=== PATIENT | male | born 1975 | race African-American/Black ===

== ENCOUNTER 2020-05-03 11:17 | Outpatient (REF) | payer OTHER, SELFPAY | END 2020-05-03 11:18 | disposition home or self-care (01) | LOC: HO.LAB 11:17 | PROVIDERS: PCP Internal Medicine; Visit Provider Internal Medicine | DX: Z20.828 Contact with and (suspected) exposure to other viral communicable diseases (principal) | CPT/HCPCS: U0003 ==

== ENCOUNTER 2020-05-17 12:17 | Outpatient (REF) | payer OTHER, SELFPAY | END 2020-05-17 12:18 | disposition home or self-care (01) | LOC: HO.LAB 12:17 | PROVIDERS: Visit Provider Internal Medicine | DX: Z20.828 Contact with and (suspected) exposure to other viral communicable diseases (principal) | CPT/HCPCS: C9803; U0003 ==

== ENCOUNTER 2020-05-24 15:57 | Outpatient (REF) | payer OTHER, SELFPAY | END 2020-05-24 15:58 | disposition home or self-care (01) | LOC: HO.LAB 15:57 | PROVIDERS: PCP Internal Medicine; Visit Provider Internal Medicine | DX: Z20.828 Contact with and (suspected) exposure to other viral communicable diseases (principal) | CPT/HCPCS: C9803; U0003 ==

== ENCOUNTER 2020-10-22 08:03 | Outpatient (REF) | payer OTHER, SELFPAY ==
[2020-10-22 09:12] LABS: MANUAL DIFF FLAG NO
[2020-10-22 09:19] LABS: Basophils Percent Auto 0.7 % (0-2); Eosinophils Absolute Auto 0.2 X10*3/uL (0.0-0.4); Eosinophils Percent Auto 3.9 % (0-4); Hematocrit 44.3 % (42-52); Hemoglobin 15.3 g/dl (14.0-18.0); Imm Gran Abs Auto 0.01 X10*3/uL (0.00-0.03); Imm Gran Pct Auto 0.2 % (0.0-0.4); Lymphocytes Absolute Auto 1.5 X10*3/uL (1.2-4.9); Lymphocytes Percent Auto 25.5 % (20-40); Mean Corpuscular HGB Conc 34.5 g/dl (31.0-36.0); Mean Corpuscular Hemoglobin 31.5 pg (27.0-33.0); Mean Corpuscular Volume 91.2 fL (80-98); Mean Platelet Volume 10.4 fL (9.4-12.4); Monocytes Absolute Auto 0.7 X10*3/uL (0.1-1.2); Monocytes Percent Auto 11.6 % (2-11); Neutrophils Absolute Auto 3.5 X10*3/uL (2.0-8.3); Neutrophils Percent Auto 58.1 % (45-73); Platelet Count 164 X10*3/uL (160-400); Red Blood Count 4.86 X10*6/uL (4.60-5.80); Red Cell Distribution Width 12.2 % (11.0-16.0)
[2020-10-22 09:53] LABS: Alanine Aminotransferase 131 U/L (0-40); Albumin Level 3.8 g/dL (3.5-5.0); Alkaline Phosphatase 112 U/L (39-117); Anion Gap 12 (12-20); Aspartate Amino Transferase 103 U/L (5-37); Bilirubin Total 1.2 mg/dL (0.0-1.0); Blood Urea Nitrogen 16 mg/dL (9-16); Carbon Dioxide 29 mmol/L (22-29); Chloride 100 mmol/L (96-108); Cholesterol 167 mg/dL; Estimated Glomerular Filt Rate > 60; Glucose Random 311 mg/dL (60-115); HDL Cholesterol 46 mg/dL; LDL Cholesterol Calculated 93 mg/dl; Potassium 4.3 mmol/L (3.3-5.1); Sodium 137 mmol/L (135-145); Total Protein 7.3 g/dL (6.5-8.0); Triglycerides 142 mg/dL
[2020-10-22 10:05] LABS: Free T4 (Free Thyroxine) 1.08 ng/dL (0.71-1.85); Thyroid Stimulating Hormone 0.45 uIU/mL (0.32-4.0)
[2020-10-22 10:51] LABS: Estimated Average Glucose 209 mg/dL; Hemoglobin A1c % 8.9 %
[2020-10-22 11:11] LABS: Microalbum/Creatinine Ratio Ur 11.6 ug/mg cr
[2020-10-22 11:33] LABS: Folate 12.6 ng/mL (> or = 4.0); Vitamin B12 415 pg/mL (200-900)
== END 2020-10-22 08:04 | disposition home or self-care (01) ==
LOC: HO.LAB 08:03
PROVIDERS: PCP Internal Medicine; Visit Provider Internal Medicine
DX: I10 Essential (primary) hypertension (principal); E11.65 Type 2 diabetes mellitus with hyperglycemia; E78.00 Pure hypercholesterolemia, unspecified
CPT/HCPCS: 36415; 80053; 80061; 82043; 82607; 82746; 83036; 84439; 84443; 85025

== ENCOUNTER → 2021-09-01 14:20 | Outpatient (BNVA) | payer SELFPAY | PROVIDERS: PCP Internal Medicine; Visit Provider Physician Assistant | DX: Z02.79 Encounter for issue of other medical certificate (principal) ==

== ENCOUNTER 2021-09-06 08:32 | Outpatient (REF) | payer OTHER, SELFPAY ==
[2021-09-06 08:58] LABS: MANUAL DIFF FLAG NO
[2021-09-06 09:13] LABS: Basophils Percent Auto 0.4 % (0-2); Eosinophils Absolute Auto 0.2 X10*3/uL (0.0-0.4); Eosinophils Percent Auto 2.2 % (0-4); Hematocrit 45.5 % (42.0-52.0); Hemoglobin 15.6 g/dl (14.0-18.0); Imm Gran Abs Auto 0.02 X10*3/uL (0.00-0.03); Imm Gran Pct Auto 0.3 % (0.0-0.4); Lymphocytes Absolute Auto 1.5 X10*3/uL (1.2-4.9); Lymphocytes Percent Auto 20.9 % (20-40); Mean Corpuscular HGB Conc 34.3 g/dl (31.0-36.0); Mean Corpuscular Hemoglobin 30.5 pg (27.0-33.0); Mean Corpuscular Volume 88.9 fL (80.0-98.0); Mean Platelet Volume 9.9 fL (9.4-12.4); Monocytes Absolute Auto 0.9 X10*3/uL (0.1-1.2); Monocytes Percent Auto 11.9 % (2-11); Neutrophils Absolute Auto 4.7 x10*3/uL (2.0-8.3); Neutrophils Percent Auto 64.3 % (45-73); Platelet Count 227 X10*3/uL (160-400); Red Blood Count 5.12 X10*6/uL (4.60-5.80); Red Cell Distribution Width 11.8 % (11.0-16.0); White Blood Count 7.3 X10*3/uL (4.8-10.8)
[2021-09-06 09:30] LABS: Estimated Average Glucose 160 mg/dL; Hemoglobin A1c % 7.2 %
[2021-09-06 09:35] LABS: Alanine Aminotransferase 59 U/L (0-40); Albumin Level 4.1 g/dL (3.5-5.0); Alkaline Phosphatase 84 U/L (39-117); Anion Gap 10 (12-20); Aspartate Amino Transferase 43 U/L (5-37); Bilirubin Total 1.3 mg/dL (0.0-1.0); Blood Urea Nitrogen 11 mg/dL (9-16); Carbon Dioxide 31 mmol/L (22-29); Chloride 100 mmol/L (96-108); Cholesterol 142 mg/dL; Estimated Glomerular Filt Rate > 60; Glucose Random 208 mg/dL (60-115); HDL Cholesterol 59 mg/dL; LDL Cholesterol Calculated 72 mg/dl; Potassium 4.1 mmol/L (3.3-5.1); Sodium 137 mmol/L (135-145); Total Protein 7.5 g/dL (6.5-8.0); Triglycerides 59 mg/dL
[2021-09-06 10:00] LABS: Free T4 (Free Thyroxine) 1.16 ng/dL (0.71-1.85); Thyroid Stimulating Hormone 0.86 uIU/mL (0.32-4.0)
[2021-09-06 10:04] LABS: Vitamin B12 513 pg/mL (200-900)
[2021-09-06 10:05] LABS: Creatinine Urine 131.18 mg/dL; Microalbum/Creatinine Ratio Ur 20.5 ug/mg cr
== END 2021-09-06 08:33 | disposition home or self-care (01) ==
LOC: HO.LAB 08:32
PROVIDERS: PCP Internal Medicine; Visit Provider Internal Medicine
DX: E11.65 Type 2 diabetes mellitus with hyperglycemia (principal); E78.00 Pure hypercholesterolemia, unspecified
CPT/HCPCS: 36415; 80053; 80061; 82043; 82607; 82746; 83036; 84439; 84443; 85025

== ENCOUNTER → 2022-11-30 12:50 | Outpatient (BNVA) | payer SELFPAY | PROVIDERS: PCP Internal Medicine; Visit Provider Internal Medicine | DX: Z02.79 Encounter for issue of other medical certificate (principal) ==

== ENCOUNTER 2022-12-14 10:28 | Outpatient (REF) | payer OTHER, SELFPAY ==
[2022-12-14 10:45] LABS: MANUAL DIFF FLAG NO
[2022-12-14 11:06] LABS: Basophils Percent Auto 0.7 % (0-2); Eosinophils Absolute Auto 0.3 X10*3/uL (0.0-0.4); Eosinophils Percent Auto 5.1 % (0-4); Hematocrit 46.3 % (42.0-52.0); Hemoglobin 16.1 g/dl (14.0-18.0); Imm Gran Abs Auto 0.02 X10*3/uL (0.00-0.03); Imm Gran Pct Auto 0.3 % (0.0-0.4); Lymphocytes Absolute Auto 1.3 X10*3/uL (1.2-4.9); Lymphocytes Percent Auto 22.6 % (20-40); Mean Corpuscular HGB Conc 34.8 g/dl (31.0-36.0); Mean Corpuscular Hemoglobin 30.8 pg (27.0-33.0); Mean Corpuscular Volume 88.7 fL (80.0-98.0); Mean Platelet Volume 10.7 fL (9.4-12.4); Monocytes Absolute Auto 0.6 X10*3/uL (0.1-1.2); Monocytes Percent Auto 10.3 % (2-11); Neutrophils Absolute Auto 3.6 x10*3/uL (2.0-8.3); Platelet Count 171 X10*3/uL (160-400); Red Blood Count 5.22 X10*6/uL (4.60-5.80); Red Cell Distribution Width 12.3 % (11.0-16.0); White Blood Count 5.9 X10*3/uL (4.8-10.8)
[2022-12-14 11:28] LABS: Estimated Average Glucose 186 mg/dL; Hemoglobin A1c % 8.1 %
[2022-12-14 11:55] LABS: Alanine Aminotransferase 103 U/L (0-40); Alkaline Phosphatase 124 U/L (39-117); Anion Gap 12 (12-20); Aspartate Amino Transferase 66 U/L (5-37); Bilirubin Total 1.4 mg/dL (0.0-1.0); Blood Urea Nitrogen 12 mg/dL (9-16); Calcium 9.2 mg/dL (8.4-10.2); Carbon Dioxide 29 mmol/L (22-29); Chloride 101 mmol/L (96-108); Cholesterol 184 mg/dL; Estimated Glomerular Filt Rate > 60; Glucose Random 255 mg/dL (60-115); HDL Cholesterol 57 mg/dL; LDL Cholesterol Calculated 105 mg/dl; Potassium 4.2 mmol/L (3.3-5.1); Sodium 138 mmol/L (135-145); Total Protein 7.7 g/dL (6.5-8.0); Triglycerides 112 mg/dL
[2022-12-14 12:01] LABS: Free T4 (Free Thyroxine) 0.98 ng/dL (0.71-1.85); Thyroid Stimulating Hormone 0.43 uIU/mL (0.32-4.0)
[2022-12-14 12:02] LABS: Creatinine Urine 85.28 mg/dL; Microalbum/Creatinine Ratio Ur 26.9 ug/mg cr
[2022-12-14 12:12] LABS: Folate 11.4 ng/mL (> or = 4.0); Vitamin B12 537 pg/mL (200-900)
== END 2022-12-14 10:29 | disposition home or self-care (01) ==
LOC: HO.LAB 10:28
PROVIDERS: PCP Internal Medicine; Visit Provider Internal Medicine
DX: E11.65 Type 2 diabetes mellitus with hyperglycemia (principal); I10 Essential (primary) hypertension; E78.00 Pure hypercholesterolemia, unspecified
CPT/HCPCS: 36415; 80053; 80061; 82043; 82607; 82746; 83036; 84439; 84443; 85025

== ENCOUNTER 2023-02-07 10:06 | Outpatient (AMB) | payer OTHER, SELFPAY ==
--- NOTE | 2023-02-07 10:36 | MHC.PC.OV ---
Vital Signs 02/07/23 10:38 02/07/23 11:03 Height 5 ft 9 in Weight 239 lb BMI 35.3 BP 162/82 H 150/80 H Blood Pressure Location Lt brachial Lt brachial Position Sitting Sitting Pulse 88 Pulse Source Pulse Oximeter Pulse Oximetry (%) 98 Oxygen Delivery Method Room Air Intake Visit Reasons: PE Allergies No Known Allergies Allergy (Verified 02/07/23 10:38) Medication List - Last Reconciled 02/07/23 by Louise Hughes MD amlodipine 10 mg PO DAILY blood pressure monitor (Blood Pressure Kit) As directed blood sugar diagnostic (FreeStyle Lite Strips) As directed check the blood sugar once a day blood sugar diagnostic (FreeStyle Lite Strips) As directed check the BS QD blood-glucose meter (FreeStyle Lite Meter kit) As directed clotrimazole 1% 1 appl topical BID 4 weeks famotidine (Acid Controller) 20 mg PO DAILY flash glucose scanning reader ([employer] 14 Day [place]) As directed flash glucose sensor ([employer] 14 Day Sensor kit) As directedcheck the BS hydrochlorothiazide 12.5 mg PO DAILY lancets ([employer] Lancets) As directed check BS QD lisinopril 40 mg PO DAILY metformin 500 mg PO BID miconazole nitrate 2% (Zeasorb AF) 1 appl topical BID Tobacco use date assessed: 02/07/23 Dental Screening Dental Screen Date: 02/07/23 Did you have a dental visit in the last 12 months?: Yes Did you have a dental problem in the last 6 months where you did not have access to dental care?: No Was dental information given to patient?: Patient has dentist HPI PE HPI Details H[age][id number]-old obese male with diabetes mellitus GERD hypertension generalized anxiety disorder coming in for physical exam last seen in April 2022. Patient has been referred to Gastroenterology for colon cancer screening. Blood work was requested. Done November 2022 patient was scheduled with the senior electrical controls engineer but patient did not show. ERIK [id number] interpret occ dizzy occ nausea. states was told by work connection has iron in urine- noted rash on the R wrist - 2 weeks [facility] Medical History (Updated 02/07/23 @ 11:43 by Louise Hughes MD) Anxiety and depression COVID-19 virus infection Fatty liver GERD (gastroesophageal reflux disease) Hypertension Obesity (BMI 30-39.9) Peroneal neuropathy Type 2 diabetes mellitus with hyperglycemia Vitamin D deficiency Surgical History No pertinent past surgical history Family History (Updated 02/07/23 @ 10:39 by Deana Nevarez [facility]) Father CVD (cardiovascular disease) Pulmonary embolism Mother No problems noted. Brother No problems noted. Daughter No problems noted. Daughter ADHD Daughter No problems noted. Social History (Updated 02/07/23 @ 11:15 by Louise Hughes MD) Housing: Apartment Alcohol intake: current Alcohol intake frequency: a few times a week Alcohol type: beer Patient Tobacco Use Status: Never used Tobacco e-Cigarette/Vaping Use: Never Used Second Hand Smoke Exposure: No Current occupational status: employed Cognitive needs: No Hearing needs: No Vision needs: No Questionnaire PHQ-9 Over the last 2 weeks, how often have you been bothered by any of the following problems? 1. Little interest or pleasure in doing things: not at all 2. Feeling down, depressed, or hopeless: not at all 3. Trouble falling or staying asleep, or sleeping too much: not at all 4. Feeling tired or having little energy: not at all 5. Poor appetite or overeating: not at all 6. Feeling bad about yourself - or that you are a failure or have let yourself or your family down: not at all 7. Trouble concentrating on things, such as reading the newspaper or watching television: not at all 8. Moving or speaking so slowly that other people could have noticed. Or the opposite - being so fidgety or restless that you have been moving around a lot more than usual: not at all 9. Thoughts that you would be better off or of hurting yourself in some way: not at all Total score: 0 Depression Screening Interpretation: Negative Source: Developed by Drs. Chandrakant Mendoza, Aziza Styles, Eric Putnam and colleagues, with an educational marisel from [employer]. Thrive Questionnaire Date Thrive assessed: 02/07/23 I am a: Patient What is your living situation today?: I have a steady place to live Within the past 12 months, did the food you bought not last and you didn't have the money to get more?: Never true Within the past 12 months, did you worry whether your food would run out before you got money to buy more?: Never true Do you have trouble paying for medicines?: No Do you have trouble getting transportation to medical appointments?: No Do you have trouble paying your heating and electricity bill?: No Do you have trouble taking care of your child, family member or friend?: No Do you have trouble with day-to-day activities such as bathing, preparing meals, shopping, managing finances, etc.?: No Are you currently unemployed and looking for a job?: No Are you interested in more education?: No Currently or been in a relationship where the following occur: no concerns reported AUDIT C Alcohol Use Questionnaire (AUDIT-C) 1. How often do you have a drink containing alcohol?: 2-3 times a week 2. How many drinks containing alcohol do you have on a typical day when you are drinking?: 3 or 4 3. How often do you have six or more drinks on one occasion?: Never Total Score: 4 RANDY-7 AMB Questionnaire RANDY-7 Date RANDY - 7 assessed: 02/07/23 Feeling nervous, anxious, or on edge: 0 = Not at all Not being able to stop or control worryin = Not at all Worrying too much about different things: 0 = Not at all Trouble relaxin = Not at all Being so restless that it is hard to sit still: 0 = Not at all Becoming easily annoyed or irritable: 0 = Not at all Feeling afraid as if something awful might happen: 0 = Not at all Total RANDY-7 score (0-4 normal; 5-9 mild; 10-14 moderate; 15-21 severe): 0 Source: Developed by Drs. Chandrakant Mendoza, Aziza Styles, Eric Putnam and colleagues, with an educational marisel from [employer]. Review of Systems Const Denies poor appetite and Denies weakness Eyes Denies no additional complaints ENT Reports Normal hearing present, Denies dizziness, Denies nasal congestion, Denies tinnitus and Denies sore throat Card Denies chest pain, Denies syncope, Denies rapid heart rate and Denies dyspnea Resp Denies cough and Denies dyspnea GI Denies change in stool character, Reports constipation, Denies diarrhea, Denies nausea and Denies vomiting Denies dysuria and Denies urinary frequency Neuro Reports Normal hearing present, Denies confusion, Denies dizziness, Denies syncope and Denies weakness Psych Denies confusion Physical exam (Primary Care) Vital Signs: Last Vital Signs Pulse 88 02/07/23 10:38 BP 162/82 H 02/07/23 10:38 Pulse Ox 98 02/07/23 10:38 Oxygen Delivery Method Room Air 02/07/23 10:38 BMI result Body Mass Index 35.3 Tobacco/Smoking Status: Tobacco use Status Tobacco use date assessed 02/07/23 02/07/23 10:40 Patient Tobacco Use Status Never used Tobacco 02/07/23 10:40 Tobacco use type 07/27/21 10:39 e-Cigarette/Vaping Use Never Used 02/07/23 10:40 PHQ-9: PHQ-9 Score PHQ-9: Total score 0 02/07/23 10:44 Depression Screening Interpretation: Negative Thrive Assessment: Date of Thrive Assessment Date Thrive assessed 02/07/23 02/07/23 10:40 Currently or been in a relationship where the following occur: no concerns reported Const General: No confusion Orientation/consciousness: No confusion HENMT Head: Yes normocephalic Ears: external ears normal and TM's normal bilaterally Face and sinus: Yes normal facial exam Mouth: moist mucous membranes Throat: Yes tonsils normal Eyes Conjunctivae: conjunctivae normal Pupils: Equal, round and reactive pupils present and Pupil accommodation reflex normal Direct Ophthalmoscopy: normal light reflex Neck Neck: No lymphadenopathy Thyroid: Thyroid normal Chest Chest palpation & inspection: normal inspection of the chest Resp Effort & Inspection: normal respiratory effort and no audible wheezes Auscultation: clear to auscultation bilaterally, no crackles, no wheezes and lung sounds not diminished Cardio Rate: regular rate Rhythm: regular rhythm Peripheral pulses: radial pulses present and dorsalis pedis present GI Other: colon test reminded Palpation (GI): no masses Auscultation: normal bowel sounds and normoactive bowel sounds Rectal Exam - Male: Yes deferred Other: pedal pulses and pin prick normal Male General Exam: Yes normal external exam Skin General skin exam: no rashes or lesions noted Rashes: no rashes Neuro General: No confusion Cranial nerves: Yes Equal, round and reactive pupils present and Yes Normal hearing present Cognition (Neuro): normal cognition Gait exam (Neuro): Normal gait present Motor exam (neuro): 5/5 motor strength present throughout Deep tendon reflexes (DTR's): Right brachioradialis reflex intensity grade: 2+, Left brachioradialis reflex intensity grade: 2+, Right patellar reflex intensity grade: 2+ and Left patellar reflex intensity grade: 2+ Extrem General: No edema Assessment and Plan Assessment & Plan (1) Annual physical exam: Code(s): Z00.00 - Encounter for general adult medical examination without abnormal findings (2) Type 2 diabetes mellitus with hyperglycemia: Comment: Eye and [facility] Code(s): E11.65 - Type 2 diabetes mellitus with hyperglycemia Qualifiers: Diabetes mellitus residential insulin use: without residential use Qualified Code(s): E11.65 - Type 2 diabetes mellitus with hyperglycemia Plan: Decrease the amount of carbohydrate intake, pasta, bread, rice and potatoes are all sugar and that is aside from all the sweet stuff, remember that fruits are good but they are Sweet also. Hemoglobin A1c goal of less than 6.5 (3) GERD (gastroesophageal reflux disease): Code(s): K21.9 - Gastro-esophageal reflux disease without esophagitis Plan: Avoid the foods that causes that usually spicy foods, tomato products, juices, coffee, soda and foods that your sensitive to. After eating do not lie down, allow 3-4 hours before in lie down. And keep the head of bed above 30 degrees to avoid the acid from going up. (4) Obesity (BMI 30-39.9): Code(s): E66.9 - Obesity, unspecified Plan: Diet and exercise (5) Hypertension: Code(s): I10 - Essential (primary) hypertension Qualifiers: Hypertension type: essential hypertension Qualified Code(s): I10 - Essential (primary) hypertension Plan: Continue with blood pressure medication. Decrease salt intake and exercise patient is on amlodipine 10 mg once a day hydrochlorothiazide 12.5 mg and lisinopril 40 mg once a day (6) Hypercholesterolemia: Code(s): E78.00 - Pure hypercholesterolemia, unspecified Plan: Avoid fried foods, chicken skin, eggs, butter margarine, pastries and meat. Be it pork or beef they have a lot of cholesterol LDL goal of less than 100 and triglyceride of less than 150 (7) Generalized anxiety disorder: Code(s): F41.1 - Generalized anxiety disorder (8) Colon cancer screening: Code(s): Z12.11 - Encounter for screening for malignant neoplasm of colon (9) Hematuria: Code(s): R31.9 - Hematuria, unspecified (10) Allergic contact dermatitis: Comment: R wrist Code(s): L23.9 - Allergic contact dermatitis, unspecified cause Orders: Orders UA w Microscopic Today R31.9 - Hematuria, unspecified US renal BI Today R31.9 - Hematuria, unspecified Lipid Panel 3 Months E78.00 - Pure hypercholesterolemia, unspecified Comprehensive Met. Panel 3 Months E78.00 - Pure hypercholesterolemia, unspecified Hemoglobin A1c 3 Months E78.00 - Pure hypercholesterolemia, unspecified Referrals Podiatry Referral E11.65 - Type 2 diabetes mellitus with hyperglycemia Medications: New blood pressure monitor (Blood Pressure Kit) As directed 1 ea 0RF I10 - Essential (primary) hypertension atorvastatin 10 mg PO DAILY 30 tabs 4RF E78.00 - Pure hypercholesterolemia, unspecified triamcinolone acetonide 0.5% 1 appl topical BID 15 grams 0RF L23.9 - Allergic contact dermatitis, unspecified cause Changed From metformin 500 mg PO BID 180 tabs 2RF E11.65 - Type 2 diabetes mellitus with hyperglycemia To metformin 1,000 mg PO BID 60 tabs 3RF E11.65 - Type 2 diabetes mellitus with hyperglycemia Refilled amlodipine 10 mg PO DAILY 90 tabs 2RF I10 - Essential (primary) hypertension hydrochlorothiazide 12.5 mg PO DAILY 90 tabs 2RF E11.65 - Type 2 diabetes mellitus with hyperglycemia lisinopril 40 mg PO DAILY 90 tabs 2RF I10 - Essential (primary) hypertension Coding Level of Care Code Est Pt Prev Care 40-64y([id number]) Diagnoses Annual physical exam Z00.00 Type 2 diabetes mellitus with hyperglycemia E11.65 Diabetes mellitus intermediate manager insulin use: without residential use GERD (gastroesophageal reflux disease) K21.9 Obesity (BMI 30-39.9) E66.9 Hypertension I10 Hypertension type: essential hypertension Hypercholesterolemia E78.00 Generalized anxiety disorder F41.1 Colon cancer screening Z12.11 Hematuria R31.9 Allergic contact dermatitis L23.9
[2023-02-07 10:38] VITALS: BP 162/82; PULSE 88; O2SAT 98; BMI 35.3
[2023-02-07 11:03] VITALS: BP 150/80
== END 2023-02-07 11:57 | disposition home or self-care (01) ==
PROVIDERS: PCP Internal Medicine; Visit Provider Internal Medicine
DX: Z00.00 Encounter for general adult medical examination without abnormal findings (principal); E11.65 Type 2 diabetes mellitus with hyperglycemia; E66.9 Obesity, unspecified; Z68.35 Body mass index [BMI] 35.0-35.9, adult; K21.9 Gastro-esophageal reflux disease without esophagitis; I10 Essential (primary) hypertension; E78.00 Pure hypercholesterolemia, unspecified; F41.1 Generalized anxiety disorder; Z12.11 Encounter for screening for malignant neoplasm of colon; R31.9 Hematuria, unspecified; L23.9 Allergic contact dermatitis, unspecified cause
CPT/HCPCS: 99396

== ENCOUNTER 2023-05-10 12:31 | Outpatient (REF) | payer SELFPAY ==
[2023-05-10 13:41] LABS: Estimated Average Glucose 157 mg/dL; Hemoglobin A1c % 7.1 % (<6.0)
[2023-05-10 14:07] LABS: Alanine Aminotransferase 94 U/L (0-40); Albumin Level 4.3 g/dL (3.5-5.0); Alkaline Phosphatase 108 U/L (39-117); Anion Gap 11 (12-20); Aspartate Amino Transferase 68 U/L (5-37); Blood Urea Nitrogen 14 mg/dL (9-16); Calcium 9.4 mg/dL (8.4-10.2); Carbon Dioxide 31 mmol/L (22-29); Chloride 101 mmol/L (96-108); Cholesterol 170 mg/dL (<200); Estimated Glomerular Filt Rate > 60; Glucose Random 176 mg/dL (60-115); HDL Cholesterol 62 mg/dL (>40); LDL Cholesterol Calculated 95 mg/dL (<100); Potassium 3.6 mmol/L (3.3-5.1); Sodium 139 mmol/L (135-145); Total Protein 8.1 g/dL (6.5-8.0); Triglycerides 67 mg/dL (<150)
== END 2023-05-10 12:32 | disposition home or self-care (01) ==
LOC: HO.LAB 12:31
PROVIDERS: PCP Internal Medicine; Visit Provider Internal Medicine
DX: E78.00 Pure hypercholesterolemia, unspecified (principal); E11.65 Type 2 diabetes mellitus with hyperglycemia
CPT/HCPCS: 36415; 80053; 80061; 83036

== ENCOUNTER → 2024-09-19 12:04 | Outpatient (BNVA) | payer SELFPAY | PROVIDERS: PCP Internal Medicine; Visit Provider Physician Assistant Medical | DX: Z02.79 Encounter for issue of other medical certificate (principal) ==

== ENCOUNTER 2024-09-19 14:05 | Outpatient (AMB) | payer OTHER, SELFPAY ==
--- NOTE | 2024-09-19 14:31 | A.OFFPC_ITS ---
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 Required: No Accompanied by: Self / Same As Patient Allergies No Known Allergies Allergy (Verified 09/19/24 14:39) Tobacco use date assessed: 09/19/24 Dental Screening Dental Screen Date: 09/19/24 Did you have a dental visit in the last 12 months?: No Did you have a dental problem in the last 6 months where you did not have access to dental care?: No Was dental information given to patient?: Patient has dentist [facility] Medical History (Updated 09/19/24 @ 14:58 by Destiny Lagos PA-C) Type 2 diabetes mellitus with hemoglobin A1c goal of less than 7.0% COVID-19 virus infection Type 2 diabetes mellitus with hyperglycemia Anxiety and depression Vitamin D deficiency GERD (gastroesophageal reflux disease) Peroneal neuropathy Fatty liver Obesity (BMI 30-39.9) Hypertension Surgical History No pertinent past surgical history Family History Father CVD (cardiovascular disease) Pulmonary embolism Mother No problems noted. Brother No problems noted. Daughter No problems noted. Daughter ADHD Daughter No problems noted. Social History Housing: Apartment Alcohol intake: current Alcohol intake frequency: a few times a week Alcohol type: beer Patient Tobacco Use Status: Never used Tobacco e-Cigarette/Vaping Use: Never Used Second Hand Smoke Exposure: No service: No Current occupational status: employed Cognitive needs: No Hearing needs: No Vision needs: No Questionnaire PHQ-9 Over the last 2 weeks, how often have you been bothered by any of the following problems? 1. Little interest or pleasure in doing things: not at all 2. Feeling down, depressed, or hopeless: not at all 3. Trouble falling or staying asleep, or sleeping too much: not at all 4. Feeling tired or having little energy: not at all 5. Poor appetite or overeating: not at all 6. Feeling bad about yourself - or that you are a failure or have let yourself or your family down: not at all 7. Trouble concentrating on things, such as reading the newspaper or watching television: not at all 8. Moving or speaking so slowly that other people could have noticed. Or the opposite - being so fidgety or restless that you have been moving around a lot m ore than usual: not at all 9. Thoughts that you would be better off or of hurting yourself in some way: not at all Total score: 0 Depression Screening Interpretation: Negative Depression Screening Done: Yes 27493 - PHQ-9 Billing: Yes Source: Developed by Drs. Chandrakant Mendoza, Aziza Styles, Eric Putnam and colleagues, with an educational marisel from [employer]. Thrive Questionnaire Date Thrive assessed: 09/19/24 I am a: Patient What is your living situation today?: I have a steady place to live Within the past 12 months, did the food you bought not last and you didn't have the money to get more?: Never true Within the past 12 months, did you worry whether your food would run out before you got money to buy more?: Never true Do you have trouble paying for medicines?: No Do you have trouble getting transportation to medical appointments?: No Do you have trouble paying your heating and electricity bill?: No Do you have trouble taking care of your child, family member or friend?: No Do you have trouble with day-to-day activities such as bathing, preparing meals, shopping, managing finances, etc.?: No Are you currently unemployed and looking for a job?: No Are you interested in more education?: No Currently or been in a relationship where the following occur: No concerns repor erik THRIVE Score: 0 AUDIT C Alcohol Use Questionnaire (AUDIT-C) 1. How often do you have a drink containing alcohol?: 2-4 times a month 2. How many drinks containing alcohol do you have on a typical day when you are drinking?: 1 or 2 3. How often do you have six or more drinks on one occasion?: Never Total Score: 2 Score Reviewed/Action Taken: No RANDY-7 AMB Questionnaire RANDY-7 Date RANDY - 7 assessed: 09/19/24 Feeling nervous, anxious, or on edge: 0 = Not at all Not being able to stop or control worryin = Not at all Worrying too much about different things: 0 = Not at all Trouble relaxin = Not at all Being so restless that it is hard to sit still: 0 = Not at all Becoming easily annoyed or irritable: 0 = Not at all Feeling afraid as if something awful might happen: 0 = Not at all Total RANDY-7 score (0-4 normal; 5-9 mild; 10-14 moderate; 15-21 severe): 0 Source: Developed by Drs. Chandrakant Mendoza, Aziza Styles, Erci Putnam and colleagues, with an educational marisel from [employer]. RANDY-7 Assessment Billing RANDY-7 Assessment Tool: RANDY-7 Assessment 00469 Physical exam (Primary Care) Vital Signs: Last Vital Signs Temp 97.1 F 09/19/24 14:33 Pulse 90 09/19/24 14:33 BP 158/78 H 09/19/24 14:33 Pulse Ox 97 09/19/24 14:33 Oxygen Delivery Method Room Air 09/19/24 14:33 Care Plan Goal for BP management: <130/80 patient will be restarted on lisino pril 10 mg daily and hydrochlorothiazide 12.5 mg daily patient to monitor his blood pressure closely and return in 1 month for reassessment. BMI result Body Mass Index 33.3 BMI Assessment/Plan discussion: High BMI High, discussed plan: lifestyle, weight reduction, dietary, physical activity and alcohol moderation Tobacco/Smoking Status: Tobacco use Status Tobacco use date assessed 09/19/24 09/19/24 14:42 Patient Tobacco Use Status Never used Tobacco 09/19/24 14:33 Tobacco use type 07/27/21 10:39 e-Cigarette/Vaping Use Never Used 09/19/24 14:33 PHQ-9: PHQ-9 Score PHQ-9: Total score 0 09/19/24 15:02 Depression Screening Interpretation: Negative Thrive Assessment: Date of Thrive Assessment Date Thrive assessed 09/19/24 09/19/24 14:42 Currently or been in a relationship where the following occur: No concerns repor erik Results AMB Hemoglobin A1c AMB Hemoglobin A1c 8.1 % Last Edit by BRITNEY Dominguez on 09/19/24 14:42 Results Reviewed Results Reviewed: Laboratory Last Values Hgb A1c (Clinic) 8.1 % (4.0-6.0) H 09/19/24 14:31 Coding Level of Care Code Est Pt Level 4 (34235) Complex EM visit Add On G2211 Diagnoses Hypercholesterolemia E78.00 Tinea corporis B35.4 Type 2 diabetes mellitus with hyperglycemia, without long-term current use of insulin E11.65 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 LDL level goal less than 70. Total cholesterol go less than 200. Triglycerides level goal less than 150. HDL level greater than 40. Patient will have fasting labs ordered at this time and will have them done before his next month appoint/follow-up. Condition is chronic and stable continue to monitor (2) Tinea corporis: Code(s): B35.4 - Tinea corporis Category: Medical Plan: Patient reports intermittent flare-ups of tinea. Will represcribe antifungal topical creams. Condition is chronic and stable continue to monitor. 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 Last year around 05/21/2023 was 7.1. Patient has not been on his metformin 1000 mg b.i.d. therefore will restart at this time. Condition is chronic and stable continue to monitor. (4) Type 2 diabetes mellitus with hemoglobin A1c goal of less than 7.0%: Code(s): E11.9 - Type 2 diabetes mellitus without complications Category: Medical Plan: see above plan (5) Obesity (BMI 30-39.9): Code(s): E66.9 - Obesity, unspecified Category: Medical Plan: Patient to improve his diet and exercise regimen. Condition is chronic and stable continue to monitor. (6) Hypertension: Code(s): I10 - Essential (primary) hypertension Category: Medical Qualifiers: Hypertension type: essential hypertension Qualified Code(s): I10 - Essential (primary) hypertension Plan: Blood pressure goal less than 130/80. Patient has not been on any antihypertensives for over a year. He was on amlodipine 10 mg daily, lisinopril 40 mg daily and hydrochlorothiazide 12.5 mg daily. I was uncomfortable starting the patient on 3 different blood pressure medications that these high doses therefore will restart on lisinopril 10 mg daily and hydrochlorothiazide 12.5 mg daily had the patient monitored blood pressure and return in 1 month for reassessment. Condition is chronic and stable continue to monitor. Plan Plan Patient was informed and verbally consented to the use of an ambient scribe for clinic note documentation during this visit. 1. Type 2 Diabetes Mellitus Restart Metformin for blood glucose management, focusing on monitoring and compliance to manage untreated diabetes effectively. 2. Essential Hypertension Start Lisinopril 10 mg and Hydrochlorothiazide 12.5 mg, with planned monitoring to control blood pressure, aiming to prevent cardiovascular risks associated with untreated hypertension. 3. Hyperlipidemia Initiate treatment for lipid management to decrease cardiovascular risk, ensuring patient compliance. Discussion Notes I discussed with the patient the significance of reestablishing his medication regimen, particularly for Type 2 Diabetes Mellitus and Essential Hypertension. Emphasized the importance of adhering to prescribed medications to prevent complications and outlined the benefits and risks associated with each medication. We also deliberated on managing life stressors contributing to fluctuating blood pressure. Furthermore, laboratory studies were ordered to evaluate diabetes control, including an A1c test, and a follow-up was arranged to check on blood pressure and manage hyperlipidemia effectively. Orders: Orders Complete Blood Count Auto Diff Today Z00.00 - Encounter for general adult medical examination without abnormal findings Liver Panel Today Z00.00 - Encounter for general adult medical examination without abnormal findings Lipid Panel Today Z00.00 - Encounter for general adult medical examination without abnormal findings PSA,Total (Free>4and<10) Today Z00.00 - Encounter for general adult medical examination without abnormal findings Microalbumin, Random (w Creat) Today E11.9 - Type 2 diabetes mellitus without complications Vitamin A Today Z00.00 - Encounter for general adult medical examination without abnormal findings Zinc Today Z00.00 - Encounter for general adult medical examination without abnormal findings AMB Hemoglobin A1c Today E11.65 - Type 2 diabetes mellitus with hyperglycemia Comprehensive [place]. Panel Fast Today Z00.00 - Encounter for general adult medical examination without abnormal findings C Reactive Protein Today Z00.00 - Encounter for general adult medical examination without abnormal findings Erythrocyte Sedimentation Rate Today Z00.00 - Encounter for general adult medical examination without abnormal findings Magnesium Today Z00.00 - Encounter for general adult medical examination without abnormal findings TSH reflex Free T4 Today Z00. - Encounter for general adult medical examination without abnormal findings Vitamin D 25-OH Total Today Z00.00 - Encounter for general adult medical examination without abnormal findings Vitamin B12 and Folate Today Z00.00 - Encounter for general adult medical examination without abnormal findings Vitamin B1 Today Z.00 - Encounter for general adult medical examination without abnormal findings Testosterone, Total Today Z00. - Encounter for general adult medical examination without abnormal findings Parathyroid Hormone Intact Today Z00.00 - Encounter for general adult medical examination without abnormal findings Medications: Changed From lisinopril 40 mg PO DAILY 90 tabs 2RF I10 - Essential (primary) hypertension To lisinopril 10 mg PO DAILY 90 tabs 4RF I10 - Essential (primary) hypertension From blood-glucose meter (FreeStyle Lite Meter kit) As directed 1 ea 0RF E11.65 - Type 2 diabetes mellitus with hyperglycemia, Z12.11 - Encounter for screening for malignant neoplasm of colon To blood-glucose meter (FreeStyle Lite Meter kit) check BS QID 1 ea 1RF E11.65 - Type 2 diabetes mellitus with hyperglycemia, Z12.11 - Encounter for screening for malignant neoplasm of colon From metformin 1,000 mg PO BID 60 tabs 3RF E11.65 - Type 2 diabetes mellitus with hyperglycemia To metformin 1,000 mg PO BID 180 tabs 4RF 90 days E11.65 - Type 2 diabetes mellitus with hyperglycemia Refilled blood sugar diagnostic (FreeStyle Lite Strips) As directed check the blood sugar once a day 100 ea 4RF E11.65 - Type 2 diabetes mellitus with hyperglycemia hydrochlorothiazide 12.5 mg PO DAILY 90 tabs 4RF E11.65 - Type 2 diabetes mellitus with hyperglycemia lancets (FreeStyle Lancets) As directed check BS QD 100 ea 4RF E11.65 - Type 2 diabetes mellitus with hyperglycemia atorvastatin 10 mg PO DAILY 90 tabs 4RF E78.00 - Pure hypercholesterolemia, unspecified triamcinolone acetonide 0.5% 1 appl topical BID 15 grams 4RF L23.9 - Allergic contact dermatitis, unspecified cause Discontinued flash glucose scanning reader (FreeStyle Darell 14 Day Diana) Discontinued Reason: Doctor's Order As directed 1 ea 0RF E11.65 - Type 2 diabetes mellitus with hyperglycemia flash glucose sensor (FreeStyle Darell 14 Day Sensor kit) Discontinued Reason: Doctor's Order As directedcheck the BS 6 kits 3RF E11.65 - Type 2 diabetes mellitus with hyperglycemia famotidine (Acid Controller) Discontinued Reason: Duplicate 20 mg PO DAILY 90 tabs 2RF K21.9 - Gastro- esophageal reflux disease without esophagitis clotrimazole 1% Discontinued Reason: Duplicate 1 appl topical BID 4 weeks 45 grams 0RF B35.4 - Tinea corporis amlodipine Discontinued Reason: Doctor's Order 10 mg PO DAILY 90 tabs 2RF I10 - Essential (primary) hypertension Patient Instructions: Patient Instructions - Resume Metformin for diabetes management as prescribed. - Start Lisinopril 10 mg and Hydrochlorothiazide 12.5 mg for hypertension. - Take cholesterol-lowering medication as discussed. - Monitor blood pressure regularly and report any significant changes. - Schedule follow-up appointment in a month to evaluate medication effectiveness and reassess treatment plan. - Undergo blood work at your earliest convenience to evaluate current health status. - Manage stress through advised lifestyle adjustments to support blood pressure control. Scribe Plan - Not visible on output: History of Present Illness The patient is a 49-year-old male presenting with a need for medication management for known conditions, including Type 2 Diabetes and Essential Hypertension. His diabetes was diagnosed some time before and managed with Metformin, which he has not taken during the last year due to relocation and occupational obligations in [place]. Hypertension, previously managed with three medications, has been untreated during the same period due to loss of healthcare support and increased life stressors. His hyperlipidemia, also under prior ma nagement, requires medication reinitiation. The patient reports significant life stressors, including divorce, which may be impacting blood pressure control. 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 - Housing: Previously moved to [place] for work for a year. - Family Status: Recently . - Considerable stress is reported due to recent life changes and work responsibilities. Review of Systems - Cardiovascular: Reports past hypertension but no consistent current symptoms reported. - Endocrine: Reports history of Type 2 Diabetes Mellitus, currently untreated over the past year. - General: Weight loss reported from 239 lbs to 225 lbs over the past year. Physical Exam Appearance: Alert. Oriented X3. No acute distress. Head: Normal external exam. Normocephalic. Atraumatic. Eyes: Pupils are equal, round, and reactive to light. Extraocular movements intact. Conjunctiva and sclera normal. Eyelids normal. Throat: Pharynx normal. Uvula midline. Moist mucous membranes. Neck: Normal inspection. Neck supple. Full range of motion. Cardiovascular: Normal heart rate and rhythm. Respiratory: No respiratory distress. Painless inspiration. Back: Full range of motion noted. Skin: Skin warm and dry. Normal skin color. Normal skin turgor. No rashes/lesions/lacerations noted. Extremities: No lower extremity edema. Extremities exhibit normal range of motion. Extremities nontender. Neuro: Oriented X 3.
[2024-09-19 14:33] VITALS: BP 158/78; PULSE 90; TEMP 36.2; O2SAT 97; BMI 33.3
== END 2024-09-19 14:58 | disposition home or self-care (01) ==
LOC: HO.HMCH 14:06
PROVIDERS: PCP Internal Medicine; Visit Provider Physician Assistant Medical
DX: E78.00 Pure hypercholesterolemia, unspecified (principal); B35.4 Tinea corporis; E11.65 Type 2 diabetes mellitus with hyperglycemia; E11.9 Type 2 diabetes mellitus without complications; E66.9 Obesity, unspecified; I10 Essential (primary) hypertension

== ENCOUNTER 2024-10-24 10:12 | Outpatient (REF) | payer SELFPAY ==
[2024-10-24 10:31] LABS: MANUAL DIFF FLAG NO
--- OUTSIDE RECORDS SUMMARY | 2024-10-24 10:38 | XMS_ITS | Clinical Summary ---
[facility] Address [address] [place] [address] Care Team Providers Care Media Strategist Name Role Phone Unavailable Primary Care Provider Unavailabl e Social History Tobacco Use Types Packs/Day Years Used Date Smoking Tobacco: Never Assessed Sex and Gender Information Value Date Recorded Sex Assigned at Not on file Legal Sex Male 3:01 AM EST Gender Identity Not on file Sexual Orientation Not on file Plan of Treatment Health Maintenance Due Date Last Done Comments DTaP,Tdap,and Td Vaccines (1 - Tdap) 1993 Hepatitis B Vaccines (1 of 3 - 19+ 3-dose series) 1993 COVID-19 Vaccine ( - 2023-2 5 season) 2024 Pneumococcal Vaccine: 50+ Ye ars (1 of 1 - PCV) 2024 Zoster Vaccines (1 of 2) 2024 Influenza Vaccine (Season Ended) 2025 HIB Vaccines Aged Out No longer eligi ble based on patient's age to complete this topic HPV Vaccines Aged Out No longer eligi ble based on patient's age to complete this topic Hepatitis A Vaccines Aged Out No long er eligible based on patient's age to complete this topic IPV Vaccines Aged Out No longer eligi ble based on patient's age to complete this topic MMR Vaccines Aged Out No longer eligi ble based on patient's age to complete this topic Meningococcal ACWY Vaccine Aged Out N o longer eligible based on patient's age to complete this topic Meningococcal B Vaccine Aged Out No l onger eligible based on patient's age to complete this topic Pneumococcal Vaccine: Pediat rics (0 to 5 Years) and At-Risk Patients (6 to 64 Years) Aged Out No longer eligible b ased on patient's age to complete this topic RSV Immunization Patients Un rhiannon 20 months Aged Out No longer eligible b ased on patient's age to complete this topic Varicella Vaccines Aged Out No longer eligible based on patient's age to complete this topic
[2024-10-24 11:33] LABS: Basophils Percent Auto 0.6 % (0-2); Eosinophils Absolute Auto 0.2 X10*3/uL (0.0-0.4); Eosinophils Percent Auto 2.8 % (0-4); Hematocrit 45.6 % (42.0-52.0); Imm Gran Abs Auto 0.02 X10*3/uL (0.00-0.03); Imm Gran Pct Auto 0.3 % (0.0-0.4); Lymphocytes Absolute Auto 1.2 X10*3/uL (1.2-4.9); Mean Corpuscular HGB Conc 35.1 g/dl (31.0-36.0); Mean Corpuscular Hemoglobin 30.7 pg (27.0-33.0); Mean Corpuscular Volume 87.5 fL (80.0-98.0); Mean Platelet Volume 10.5 fL (9.4-12.4); Monocytes Absolute Auto 0.6 X10*3/uL (0.1-1.2); Monocytes Percent Auto 9.5 % (2-11); Neutrophils Absolute Auto 4.3 x10*3/uL (2.0-8.3); Neutrophils Percent Auto 67.8 % (45-73); Platelet Count 184 X10*3/uL (160-400); Red Blood Count 5.21 X10*6/uL (4.60-5.80); Red Cell Distribution Width 12.1 % (11.0-16.0); White Blood Count 6.3 X10*3/uL (4.8-10.8)
[2024-10-24 12:03] LABS: Alanine Aminotransferase 74 U/L (0-40); Alkaline Phosphatase 99 U/L (39-117); Anion Gap 9 (12-20); Aspartate Amino Transferase 65 U/L (5-37); Bilirubin Direct 0.5 mg/dL (0.0-0.5); Bilirubin Total 1.1 mg/dL (0.0-1.0); Blood Urea Nitrogen 16 mg/dL (9-16); C Reactive Protein 0.12 mg/dL (< or = 0.50); Calcium 9.3 mg/dL (8.4-10.2); Carbon Dioxide 27 mmol/L (22-29); Chloride 104 mmol/L (96-108); Cholesterol 147 mg/dL (<200); Estimated Glomerular Filt Rate > 60; Glucose Fasting 183 mg/dL (60-99); HDL Cholesterol 68 mg/dL (>40); LDL Cholesterol Calculated 67 mg/dL (<100); Magnesium 1.8 mg/dL (1.6-2.6); Potassium 3.9 mmol/L (3.3-5.1); Sodium 136 mmol/L (135-145); Total Protein 7.6 g/dL (6.5-8.0); Triglycerides 61 mg/dL (<150)
[2024-10-24 12:04] LABS: Parathyroid Hormone Intact 93.3 pg/mL (8.7-77.1)
[2024-10-24 12:06] LABS: Microalbum/Creatinine Ratio Ur 20.2 ug/mg cr (<30)
[2024-10-24 12:14] LABS: Erythrocyte Sedimentation Rate 12 MM/HR (0-15)
[2024-10-24 12:28] LABS: TSH reflex Free T4 0.32 uIU/mL (0.32-4.0); Vitamin D 25-OH Total 11.8 ng/mL (>30)
[2024-10-24 12:29] LABS: Folate 11.5 ng/mL (> or = 4.0); Vitamin B12 378 pg/mL (200-900)
[2024-10-24 12:32] LABS: PSA,Total (Free>4and<10) 0.66 ng/mL (0.00-4.00)
[2024-10-28 01:27] LABS: Vitamin A 33 mcg/dL (38-98)
[2024-10-28 20:12] LABS: Zinc 65 mcg/dL (60-130)
[2024-10-29 15:52] LABS: Testosterone, Total 1118 ng/dL (250-1100)
[2024-11-01 16:28] LABS: Vitamin B1 11 nmol/L (8-30)
== END 2024-10-24 10:13 | disposition home or self-care (01) ==
LOC: HO.LAB 10:12
PROVIDERS: PCP Internal Medicine; Visit Provider Physician Assistant Medical
DX: Z00.00 Encounter for general adult medical examination without abnormal findings (principal); E11.9 Type 2 diabetes mellitus without complications; Z12.5 Encounter for screening for malignant neoplasm of prostate
CPT/HCPCS: 36415; 80053; 80061; 80076; 82043; 82248; 82306; 82570; 82607; 82746; 83735; 83970; 84153; 84403; 84425; 84443; 84590; 84630; 85025; 85652; 86140

== ENCOUNTER 2024-10-30 15:16 | Outpatient (AMB) | payer OTHER, SELFPAY ==
--- NOTE | 2024-10-30 15:57 | MHC.PC.OV ---
Vital Signs 10/30/24 15:58 Height 5 ft 9 in Weight 218 lb BMI 32.2 BP 120/80 Blood Pressure Location Lt brachial Position Sitting Pulse 104 H Pulse Source Pulse Oximeter Temp 97.7 F Temp Source Temporal Artery Scan Pulse Oximetry (%) 97 Oxygen Delivery Method Room Air Intake Visit Reasons: annual exam Intake Note: Patient is here today for a physical. Rug Measurer Required: Yes Rug Measurer Language: Rehabilitation Medicine Physician Name: Destiny Lagos PA-C Information Interpreted: non-clinical & clinical Lining Finisher: Not Required per policy Accompanied by: Self / Same As Patient Allergies No Known Allergies Allergy (Verified 10/30/24 16:02) Medication List - Last Reconciled 10/30/24 by Destiny Lagos PA-C atorvastatin 10 mg PO DAILY blood pressure monitor (Blood Pressure Kit) As directed blood sugar diagnostic (FreeStyle Lite Strips) As directed check the BS QD blood sugar diagnostic (FreeStyle Lite Strips) As directed check the blood sugar once a day blood-glucose meter (FreeStyle Lite Meter kit) check BS QID cholecalciferol (vitamin D3) 25 mcg PO DAILY hydrochlorothiazide 12.5 mg PO DAILY lancets (FreeStyle Lancets) As directed check BS QD lisinopril 10 mg PO DAILY metformin 1,000 mg PO BID 90 days miconazole nitrate 2% (Zeasorb AF) 1 appl topical BID triamcinolone acetonide 0.5% 1 appl topical BID Tobacco use date assessed: 10/30/24 Dental Screening Dental Screen Date: 09/19/24 HPI annual exam HPI Details The patient is a 49-year-old male presenting for his annual physical exam. He would also like to discuss diabetes and his chronic medical conditions. There are ongoing challenges in maintaining ideal glucose levels, with fasting blood glucose at 125 mg/dL and postprandial levels peaking at 250 mg/dL. Recent labs indicate an elevated HbA1c of 8.1%. The patient is managing diabetes with metformin 1000 mg daily, but elevated glucose readings persist. There is also a history of hypertension being managed with lisinopril; however, inconsistent adherence due to work demands impacts blood pressure control. A prior vitamin D deficiency is being managed with vitamin D3. Reports of a fungal rash are being managed with topical cream. Social History - Employment: Works for a company requiring high availability resulting in medication adherence challenges. - Medication Adherence: Difficulty maintaining consistent medication schedule due to work constraints. - Healthcare Access: Discussed switching primary healthcare providers for convenience related to language preference and insurance compatibility. [facility] Medical History (Updated 10/30/24 @ 17:27 by Destiny Lagos PA-C) Tinea Elevated parathyroid hormone Type 2 diabetes mellitus with hemoglobin A1c goal of less than 7.0% COVID-19 virus infection Type 2 diabetes mellitus with hyperglycemia Anxiety and depression Vitamin D deficiency GERD (gastroesophageal reflux disease) Peroneal neuropathy Fatty liver Obesity (BMI 30-39.9) Hypertension Surgical History No pertinent past surgical history Family History Father CVD (cardiovascular disease) Pulmonary embolism Mother No problems noted. Brother No problems noted. Daughter No problems noted. Daughter ADHD Daughter No problems noted. Social History Housing: Apartment Alcohol intake: current Alcohol intake frequency: a few times a week Alcohol type: beer Patient Tobacco Use Status: Never used Tobacco e-Cigarette/Vaping Use: Never Used Second Hand Smoke Exposure: No service: No Current occupational status: employed Cognitive needs: No Hearing needs: No Vision needs: No Questionnaire Thrive Questionnaire Date Thrive assessed: 09/19/24 RANDY-7 AMB Questionnaire RANDY-7 Date RANDY - 7 assessed: 09/19/24 Source: Developed by Drs. Chandrakant Mendoza, Aziza Styles, Eric Putnam and colleagues, with an educational marisel from Jenn Rykert. Review of Systems Const Details: - Endocrine: Reports high blood glucose readings. - Cardiovascular: Denies fatigue, dizziness infrequently reported; blood pressure varies. - Dermatological: Reports a fungal rash. - Musculoskeletal: Denies fatigue or weakness associated with vitamin D levels. - Gastrointestinal: Denies diarrhea; occasional stomach pain reported with metformin use. Physical exam (Primary Care) Vital Signs: Last Vital Signs Temp 97.7 F 10/30/24 15:58 Pulse 104 H 10/30/24 15:58 BP 120/80 10/30/24 15:58 Pulse Ox 97 10/30/24 15:58 Oxygen Delivery Method Room Air 10/30/24 15:58 Care Plan Goal for BP management: <130/90 at Goal BMI result Body Mass Index 32.2 BMI Assessment/Plan discussion: High BMI High, discussed plan: lifestyle, weight reduction, dietary, physical activity and alcohol moderation Tobacco/Smoking Status: Tobacco use Status Tobacco use date assessed 10/30/24 10/30/24 16:02 Patient Tobacco Use Status Never used Tobacco 10/30/24 16:02 Tobacco use type 07/27/21 10:39 e-Cigarette/Vaping Use Never Used 10/30/24 16:02 Thrive Assessment: Date of Thrive Assessment Date Thrive assessed 09/19/24 10/30/24 16:02 Const Other: Appearance: Alert. Oriented X3. No acute distress. Head: Normal external exam. Normocephalic. Atraumatic. Eyes: Pupils are equal, round, and reactive to light. Extraocular movements intact. Conjunctiva and sclera normal. Eyelids normal. Ears: External auditory canal normal. Tympanic membranes normal. Throat: Pharynx normal. Uvula midline. Moist mucous membranes. Neck: Normal inspection. Neck supple. Full range of motion. No adenopathy. Thyroid Normal. No meningeal signs. No neck mass noted. Cardiovascular: Normal heart rate and rhythm. Heart sound normal. No murmurs noted. Pulses normal throughout. Blood pressure was normal today. Respiratory: No respiratory distress. Painless inspiration. Breath sounds normal. No wheezes/rales/rhonchi noted. Chest nontender. No accessory muscle usage noted or decreased air movement noted. Abdomen: Soft and nontender. Bowel sounds normal in all 4 quadrants. No distention noted. No organomegaly noted. No visible injury noted. Back: No costovertebral angle tenderness. Full range of motion noted. Skin: Skin warm and dry. Normal skin color. Normal skin turgor. No lesions/lacerations noted. Noted presence of a fungus rash to the abdominal area. Extremities: No lower extremity edema. Extremities exhibit normal range of motion. Extremities nontender. Presence of varicose veins noted. Neuro: Oriented X 3. No motor deficit. No sensory deficit. Reflexes normal. Results Reviewed Results Reviewed: - Labs: Hemoglobin A1c 8.1%; fasting blood glucose reported at 125 mg/dL. - Labs: Vitamin D previously identified as low, current supplementation with D3. Coding Level of Care Code Tele New Pt Level 4 (27734) Est Pt Prev Care 40-64y(93401) Diagnoses Annual physical exam Z00.00 Type 2 diabetes mellitus with hemoglobin A1c goal of less than 7.0% E11.9 Essential hypertension I10 Hypertension type: essential hypertension Obesity (BMI 30-39.9) E66.9 Vitamin D deficiency E55.9 Tinea B35.9 Elevated parathyroid hormone R79.89 Colon cancer screening Z12.11 Time Spent (min) 50 Assessment & Plan Assessment & Plan (1) Annual physical exam: Code(s): Z00.00 - Encounter for general adult medical examination without abnormal findings Category: Medical (2) Type 2 diabetes mellitus with hemoglobin A1c goal of less than 7.0%: Code(s): E11.9 - Type 2 diabetes mellitus without complications Category: Medical Plan: A1c level goal less than 7.0. A1c level on 09/19/2024 at 8.1. Patient to start Jardiance in combination with current Metformin therapy. Follow-up in three months for evaluation. Condition is chronic and stable continue to monitor. (3) Hypertension: Code(s): I10 - Essential (primary) hypertension Category: Medical Qualifiers: Hypertension type: essential hypertension Qualified Code(s): I10 - Essential (primary) hypertension Plan: Blood pressure goal less than 130/90. Reinforce daily lisinopril adherence. Reassess in three months. Condition is chronic and stable continue to monitor. (4) Obesity (BMI 30-39.9): Code(s): E66.9 - Obesity, unspecified Category: Medical Plan: Patient to improve his diet and exercise regimen. Condition is chronic and stable will continue to monitor. (5) Vitamin D deficiency: Code(s): E55.9 - Vitamin D deficiency, unspecified Category: Medical Plan: Continue daily vitamin D3. Monitor levels in three months. Condition is chronic and stable will continue to monitor. (6) Tinea: Code(s): B35.9 - Dermatophytosis, unspecified Category: Medical Plan: Continue current topical antifungal treatment, monitor for changes. Condition is chronic and stable will continue to monitor. (7) Elevated parathyroid hormone: Code(s): R79.89 - Other specified abnormal findings of blood chemistry Category: Medical Plan: Patient has an elevated parathyroid hormone. Will reassess in 3 months after the patient's vitamin-D deficiency has improved. Patient understands agrees with this plan. Condition is stable. (8) Colon cancer screening: Code(s): Z12.11 - Encounter for screening for malignant neoplasm of colon Category: Medical Plan: Will refer patient for colon cancer screening. Plan Plan Patient was informed and verbally consented to the use of an ambient scribe for clinic note documentation during this visit. 1. Diabetes Mellitus Type 2 Patient to start Jardiance in combination with current Metformin therapy. Follow-up in three months for evaluation. 2. Hypertension Reinforce daily lisinopril adherence. Reassess in three months. 3. Vitamin D Deficiency Continue daily vitamin D3. Monitor levels in three months. 4. High Blood Pressure Maintain current management plan, monitor adherence. 5. Fungal Rash Continue current topical antifungal treatment, monitor for changes. We reviewed the current status of the patient's Diabetes Mellitus Type 2 and emphasized the need for stricter glucose control through the addition of Jardiance to his treatment regimen. Risks and benefits were discussed, highlighting the need for consistent use and follow-up monitoring. Additionally, we discussed the importance of regular blood pressure monitoring due to his Hypertension and ensured understanding of potential lifestyle impacts. Addressed ongoing Vitamin D Deficiency management with continued supplementation and will reassess levels in future visits. Lastly, there was reassurance regarding the care plan for the current Fungal Rash, with instructions for ongoing topical treatment and reporting of any changes. Orders: Referrals Gastroenterology Referral Z12.11 - Encounter for screening for malignant neoplasm of colon Medications: New empagliflozin (Jardiance) 25 mg PO DAILY 90 tabs 1RF E11.9 - Type 2 diabetes mellitus without complications Refilled triamcinolone acetonide 0.5% 1 appl topical BID 15 grams 6RF L23.9 - Allergic contact dermatitis, unspecified cause Patient Instructions: - Take Jardiance every day with Metformin. - Check blood sugar levels before meals. - Take your blood pressure medicine, lisinopril, daily. - Continue taking vitamin D3 every day. - Apply the antifungal cream daily. - Come back for follow-up in three months. - If your stomach pain or dizziness gets worse, let us know. - Contact us if your rash looks worse or doesn?t go away.
[2024-10-30 15:58] VITALS: BP 120/80; PULSE 104; TEMP 36.5; O2SAT 97; BMI 32.2
--- OUTSIDE RECORDS SUMMARY | 2024-10-30 17:05 | XMS_ITS | Clinical Summary ---
Author Organization [facility] ity Address [address] [place] [address] Care Team Providers Care Wind Up Operator Name Role Phone Unavailable Primary Care Provider [...]
== END 2024-10-30 17:10 | disposition home or self-care (01) ==
LOC: HO.HMCH 15:17
PROVIDERS: PCP Internal Medicine; Visit Provider Physician Assistant Medical
DX: Z00.00 Encounter for general adult medical examination without abnormal findings (principal); E11.9 Type 2 diabetes mellitus without complications; E66.9 Obesity, unspecified; Z68.32 Body mass index [BMI] 32.0-32.9, adult; I10 Essential (primary) hypertension; E55.9 Vitamin D deficiency, unspecified; B35.9 Dermatophytosis, unspecified; R79.89 Other specified abnormal findings of blood chemistry; Z12.11 Encounter for screening for malignant neoplasm of colon

== ENCOUNTER → 2024-10-30 15:16 | Outpatient (BNVA) | payer OTHER, SELFPAY | PROVIDERS: PCP Internal Medicine; Visit Provider Physician Assistant Medical | DX: Z13.89 Encounter for screening for other disorder (principal) ==